=== PATIENT | female | born 1975 | race Caucasian/White ===

== ENCOUNTER 2018-07-21 15:05 | Emergency (ER) | payer OTHER ==
[~2018-07-21] VITALS: Ht 157.5 cm; Wt 70.9 kg
[2018-07-21 15:30] VITALS: BP 122/75
--- NOTE | 2018-07-21 15:37 | NUR ---
VSS. WAIT IN LOBBY
--- NOTE | 2018-07-21 15:40 | NUR ---
WAIT FOR BED 11 AVAILABLE.
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
--- NOTE | 2018-07-21 15:42 | NUR ---
PT AT CHAIR D AT THIS TIME. DR FLAVIO JESUS PT AT THIS TIME.
[2018-07-21] MEDS ORDERED: ONDANSETRON 4 MG ODT PO ONE (15:50)
[2018-07-21] MEDS ORDERED: HYDROcodone/APAP 5/325 MG 1 TAB TAB PO ONE (15:50)
[2018-07-21] MEDS ORDERED: BACITRACIN OINT 500 UNITS/GM PKT TP ONE (15:50)
[2018-07-21 16:39] VITALS: BP 124/75
--- NOTE | 2018-07-21 16:39 | NUR ---
Patient discharged with v/s stable. Written and verbal after care instructions given and explained. Patient alert, oriented and verbalized understanding of instructions. Ambulatory with steady gait. All questions addressed prior to discharge. ID band removed. Patient advised to follow up with PMD. Rx of ZOFRAN, NORCO AND BACITRACIN given. Patient educated on indication of medication including possible reaction and side effects. Opportunity to ask questions provided and answered.
== END 2018-07-21 16:39 | disposition home or self-care (01) ==
LOC: MED 15:05
DX: T22.211A Burn of second degree of right forearm, initial encounter (principal); X10.1XXA Contact with hot food, initial encounter; Y93.G3 Activity, cooking and baking; Y92.89 Other specified places as the place of occurrence of the external cause; Y99.8 Other external cause status
CPT/HCPCS: 99284; Q0162